=== PATIENT | female | born 1990 | race Caucasian/White ===

== ENCOUNTER 2023-02-13 22:11 | Emergency (ER) | payer MEDICAID ==
[~2023-02-13] VITALS: Ht 162.6 cm; Wt 72.6 kg
[2023-02-13] MEDS ORDERED: NITR100C PO (23:11)
[2023-02-13 23:15] VITALS: BP 117/74; TEMP 98.2; O2SAT 100
[2023-02-13 23:28] LABS: APPEARANCE,URINE CLEAR (CLEAR); BILIRUBIN,URINE NEGATIVE (NEGATIVE); BLOOD, URINE 2+ Ery/uL (NEGATIVE); COLOR,URINE YELLOW (YELLOW); KETONES,URINE NEGATIVE (NEGATIVE); LEUKOCYTE ESTERASE ,URINE NEGATIVE (NEGATIVE); NITRITE, URINE NEGATIVE (NEGATIVE); PREGNANCY TEST URINE QUAL NEGATIVE (NEGATIVE); PROTEIN,URINE NEGATIVE (NEGATIVE); UGLUCOSE NEGATIVE (NEGATIVE); UROBILINOGEN,URINE 0.2 EU/dL (0.2)
[2023-02-13 23:29] LABS: ADD URINE CULTURE NO; BACTERIA,URINE Rare /HPF (None Seen); SQUAMOUS EPITHELIAL CELL,UR Rare /HPF (None Seen); WBC,URINE 0-2 /HPF (0-3)
[2023-02-13] MEDS ORDERED: NITROFURANTOIN/MONOHYDRATE MACROCRYSTALS 100 MG CAPSULE ONE (23:35)
[2023-02-14] MEDS ORDERED: NITROFURANTOIN/MONOHYDRATE MACROCRYSTALS 100 MG CAPSULE PO ONE
== END 2023-02-13 23:47 | disposition home or self-care (01) ==
LOC: ER 22:15
DX: N39.0 Urinary tract infection, site not specified (principal); Z79.899 Other long term (current) drug therapy
CPT/HCPCS: 81001; 84703-TC

== ENCOUNTER 2024-12-07 17:47 | Emergency (ER) | payer MEDICAID ==
[~2024-12-07] VITALS: Ht 162.6 cm; Wt 72.6 kg
[~2024-12-07 17:47] MED LIST: NITR100C PO
[2024-12-07 18:00] VITALS: BP 121/69; TEMP 98.1; O2SAT 99
== END 2024-12-07 19:19 | disposition home or self-care (01) ==
LOC: ER 17:47
DX: J02.9 Acute pharyngitis, unspecified (principal); R05.9 Cough, unspecified; R59.1 Generalized enlarged lymph nodes; Z79.899 Other long term (current) drug therapy